=== PATIENT | male | born 1940 | race Caucasian/White ===

== ENCOUNTER → 2016-12-29 | Outpatient (CLI) | payer OTHER, BC ==
[~2016-12-29] MED LIST: ADULT LOW DOSE81 MG PO; ALLOPURINOL 10100 M1 PO; ALLOPURINOL PO; CLONIDINE HCL0.1 MG PO; CLONIDINE PO; COUMADIN6 MG PO; DYAZIDE 37.5-21 EACH PO; FISH OIL 1,0001 EAC5 PO; GLUCOSAMINE-MS1 EAC3 PO; LISINOPRIL-HCT1 EACH PO; MULTIPLE VITAM1 EAC3 PO; MULTIVITAMINS PO; PERCOCET 10-321 EACH PO; PRILOSEC 20 MG20 MG PO; TRIAMTERENE-HC1 EAC1 PO
== END ==
LOC: HYPER 15:07
DX: T81.4XXA Infection following a procedure, initial encounter (principal); K21.9 Gastro-esophageal reflux disease without esophagitis; M10.9 Gout, unspecified; I10 Essential (primary) hypertension; M19.90 Unspecified osteoarthritis, unspecified site; Z85.46 Personal history of malignant neoplasm of prostate; Z85.89 Personal history of malignant neoplasm of other organs and systems; Z89.621 Acquired absence of right hip joint; Z79.82 Long term (current) use of aspirin; Z87.01 Personal history of pneumonia (recurrent); Z87.891 Personal history of nicotine dependence; Y83.8 Other surgical procedures as the cause of abnormal reaction of the patient, or of later complication, without mention of misadventure at the time of the procedure; Y92.89 Other specified places as the place of occurrence of the external cause

== ENCOUNTER → 2017-01-21 | Outpatient (CLI) | payer OTHER, BC | LOC: HYPER 07:02 | DX: T81.4XXD Infection following a procedure, subsequent encounter (principal); K21.9 Gastro-esophageal reflux disease without esophagitis; M10.9 Gout, unspecified; I10 Essential (primary) hypertension; M19.90 Unspecified osteoarthritis, unspecified site; Z87.891 Personal history of nicotine dependence; Z85.46 Personal history of malignant neoplasm of prostate; Z89.621 Acquired absence of right hip joint; Z85.828 Personal history of other malignant neoplasm of skin; Z79.82 Long term (current) use of aspirin; Y83.8 Other surgical procedures as the cause of abnormal reaction of the patient, or of later complication, without mention of misadventure at the time of the procedure ==

== ENCOUNTER → 2017-01-28 | Outpatient (CLI) | payer OTHER, BC | LOC: HYPER 07:13 | DX: T86.828 Other complications of skin graft (allograft) (autograft) (principal); K21.9 Gastro-esophageal reflux disease without esophagitis; M10.9 Gout, unspecified; I10 Essential (primary) hypertension; M19.90 Unspecified osteoarthritis, unspecified site; Z87.891 Personal history of nicotine dependence; Z89.621 Acquired absence of right hip joint; Z85.828 Personal history of other malignant neoplasm of skin; Z85.46 Personal history of malignant neoplasm of prostate; Z79.82 Long term (current) use of aspirin; Y83.2 Surgical operation with anastomosis, bypass or graft as the cause of abnormal reaction of the patient, or of later complication, without mention of misadventure at the time of the procedure ==

== ENCOUNTER → 2017-02-17 | Outpatient (CLI) | payer OTHER, BC | LOC: HYPER 06:43 | DX: T81.4XXD Infection following a procedure, subsequent encounter (principal); T86.828 Other complications of skin graft (allograft) (autograft); L02.415 Cutaneous abscess of right lower limb; L59.8 Other specified disorders of the skin and subcutaneous tissue related to radiation; Z85.46 Personal history of malignant neoplasm of prostate; Z89.621 Acquired absence of right hip joint; Z79.82 Long term (current) use of aspirin; K21.9 Gastro-esophageal reflux disease without esophagitis; I10 Essential (primary) hypertension; M19.90 Unspecified osteoarthritis, unspecified site; Z87.891 Personal history of nicotine dependence; Y83.8 Other surgical procedures as the cause of abnormal reaction of the patient, or of later complication, without mention of misadventure at the time of the procedure ==